=== PATIENT | male | born 1995 | race Caucasian/White ===

== ENCOUNTER 2023-05-20 11:25 | Emergency (ER) | payer OTHER ==
[~2023-05-20] VITALS: Ht 182.9 cm; Wt 109.1 kg
[2023-05-20 11:26] VITALS: BP 146/78; TEMP 97; O2SAT 96
[2023-05-20] MEDS ORDERED: OFLO5DRO OU (17:12)
[2023-05-20] MEDS ORDERED: MUPI30CR TOP (17:12)
== END 2023-05-20 17:27 | disposition home or self-care (01) ==
LOC: M ED 11:25
DX: H10.33 Unspecified acute conjunctivitis, bilateral (principal)

== ENCOUNTER → 2024-05-30 | Outpatient (REF) ==
[~2024-05-30] MED LIST: MUPI30CR TOP; OFLO5DRO OU
== END ==
LOC: M PLAIMG 10:18
PROVIDERS: ATTEND Internal Medicine
DX: Z53.9 Procedure and treatment not carried out, unspecified reason (principal)